=== PATIENT | male | born 1995 | race Caucasian/White ===

== ENCOUNTER 2018-04-19 23:48 | Emergency (ER) | payer BC ==
--- NOTE | 2018-04-20 00:54 | ED ---
GI/ HPI - HPI Summary HPI Summary: This pt is a 23 y/o male [facility] c/o right groin pain since 20:00 yesterday, 04/19/18. Pt reports he had sudden onset of pain above his right testicle last night. He describes the pain "like something pulled." Pt additionally notes he feels nauseous. Denies vomiting. Denies any fever, chills , dysuria, hematuria. Pt denies difficulty urinating. Denies any PMHx. - History of Current Complaint Chief Complaint: EDUrogenitalProblems Time Seen by Provider: 04/20/18 00:44 Stated Complaint: NAUSEA/DISCOMFORT/MILD PAIN IN GROIN PER PT Hx Obtained From: Patient Onset/Duration: Started Hours Ago, Still Present Timing: Lasting Hours Pain Intensity: 2 Location of Pain: Groin - right Pain Characteristics: Other: - "like something pulled" Associated Signs and Symptoms: Positive: Nausea. Negative: Vomiting, Fever, Hematuria, Dysuria, Chills Aggravating Factor(s): Nothing Alleviating Factor(s): Nothing - Allergy/Home Medications Allergies/Adverse Reactions: Allergies Allergy/AdvReac Type Severity Reaction Status Date / Time azithromycin [From Zithromax] Allergy Unknown Verified 04/19/18 23:57 Reaction Details PMH/Surg Hx/FS Hx/Imm Hx Endocrine/Hematology History: Denies: Hx Diabetes Cardiovascular History: Denies: Hx Hypertension Infectious Disease History: No Infectious Disease History: Denies: Traveled Outside the [place] in Last 30 Days - Family History Known Family History: Negative: Cardiac Disease, Hypertension, Diabetes - Social History Alcohol Use: None Substance Use Type: Reports: None Smoking Status (MU): Never Smoked Tobacco Review of Systems Negative: Fever, Chills Positive: Nausea. Negative: Vomiting Genitourinary: Other - POS: right groin pain Negative: dysuria, hematuria All Other Systems Reviewed And Are Negative: Yes Physical Exam - Summary Physical Exam Summary: VITAL SIGNS: Reviewed. GENERAL: Patient is a well-developed and nourished male who is lying comfortable in the stretcher. Patient is not in any acute respiratory distress. HEAD AND FACE: No signs of trauma. No ecchymosis, hematomas or skull depressions. No sinus tenderness. EYES: PERRLA, EOMI x 2, No injected conjunctiva, no nystagmus. EARS: Hearing grossly intact. Ear canals and tympanic membranes are within normal limits. MOUTH: Oropharynx within normal limits. NECK: Supple, trachea is midline, no adenopathy, no JVD, no carotid bruit, no c- spine tenderness, neck with full ROM. CHEST: Symmetric, no tenderness at palpation LUNGS: Clear to auscultation bilaterally. No wheezing or crackles. CVS: Regular rate and rhythm, S1 and S2 present, no murmurs or gallops appreciated. ABDOMEN: Soft, non-tender. No signs of distention. No rebound no guarding, and no masses palpated. Bowel sounds are normal. : Tenderness over the inguinal ligament medially. Testicular exam: Normal. No tenderness. No swelling. No elevation. No redness. EXTREMITIES: FROM in all major joints, no edema, no cyanosis or clubbing. NEURO: Alert and oriented x 3. No acute neurological deficits. Speech is normal and follows commands. SKIN: Dry and warm Triage Information Reviewed: Yes Vital Signs On Initial Exam: Initial Vitals Temp Pulse Resp BP Pulse Ox 98.7 F 120 20 176/103 99 04/19/18 23:50 04/19/18 23:50 04/19/18 23:50 04/19/18 23:50 04/19/18 23:50 Vital Signs Reviewed: Yes Diagnostics - Vital Signs Vital Signs Temp Pulse Resp BP Pulse Ox 04/19/18 23:50 98.7 F 120 20 176/103 99 - Laboratory Result Diagrams: 04/20/18 01:05 04/20/18 01:05 Lab Statement: Any lab studies that have been ordered have been reviewed, and results considered in the medical decision making process. - CT Abdomen/Pelvis CT CT Interpretation Completed By: Radiologist Summary of CT Findings: IMPRESSION: 1. 3 mm left lower lobe nodule. Fleischner guidelines do not apply to the patient's of this age. 2. Low aortic/SMA angle with narrowing of the left renal vein and proximal distention which is nonspecific but may be seen with nutcracker syndrome although no significant collateralization is noted. 3. Otherwise negative CT abdomen/pelvis. No distal ureteral calculi or obstructive uropathy. Dr. Covarrubias has reviewed this report. Re-Evaluation - Re-Evaluation First Eval Re-Evaluation Time: 05:06 Comment: Reviewed lab and CT results with the pt. He will be discharged home with follow up from PCP. GIGU Course/Dx - Course Assessment/Plan: Pt is a 23 y/o male who presents with right groin pain since 20 :00 yesterday, 04/19/18. Pt reports he had sudden onset of pain above his right testicle last night. He describes the pain "like something pulled." Pt additionally notes he feels nauseous. Denies vomiting. Denies any fever, chills , dysuria, hematuria. Pt denies difficulty urinating. Denies any PMHx. Labs show WBC of 12, glucose of 116, total bilirubin of 1.6. In the ED course the pt was given Toradol for the pain. Abdomen/pelvis CT shows 1. 3 mm left lower lobe nodule. Fleischner guidelines do not apply to the patient's of this age. 2. Low aortic/SMA angle with narrowing of the left renal vein and proximal distention which is nonspecific but may be seen with nutcracker syndrome although no significant collateralization is noted. 3. Otherwise negative CT abdomen/pelvis. No distal ureteral calculi or obstructive uropathy. Urinalysis was obtained. Pt will be discharged home with follow up from his PCP. He was given a prescription for Motrin. He was instructed to return to the ED for any new or worsening symptoms. - Diagnoses Provider Diagnoses: Muscle spasm Discharge - Sign-Out/Discharge Documenting (check all that apply): Patient Departure - Discharge home Patient Received Moderate/Deep Sedation with Procedure: No - Discharge Plan Condition: Stable Disposition: HOME Prescriptions: Ibuprofen TAB* [Motrin TAB* 800 MG] 800 mg PO Q6H PRN #30 tab PRN Reason: Pain Patient Education Materials: Muscle Spasm (ED) Referrals: [facility] @ [Outside] Additional Instructions: PLEASE FOLLOW UP WITH YOUR PRIMARY CARE PROVIDER IN 1-2 DAYS. RETURN TO THE EMERGENCY DEPARTMENT FOR CHANGING OR WORSENING SYMPTOMS. - Attestation Statements Document Initiated by Scribe: Yes Documenting Scribe: Day Molina Provider For Whom Scribe is Documenting (Include Credential): Jimenez Covarrubias MD Scribe Attestation: Day Carmichael, scribed for Jimenez Covarrubias MD on 04/20/18 at 0508. Status of Scribe Document: Ready
[2018-04-20] MEDS ORDERED: Ketorolac INJ* 30 MG/ML 1 ML VIAL IV PUSH ONE (00:56)
[2018-04-20 01:15] LABS: ABS Basophils 0 10^3/ul (0-0.2); ABS Eosinophils 0 10^3/ul (0-0.6); ABS Monocytes 0.6 10^3/ul (0-0.8); ABS Neutrophils 9.4 10^3/ul (1.5-7.7); ABS Nucleated RBC 0 10^3/ul; Eosinophil % 0.2 %; Hematocrit 50 % (42-52); Hemoglobin 16.8 g/dl (14.0-18.0); Lymphocyte % 16.6 %; Mean Corpuscular HGB Conc 34 g/dl (31-36); Mean Corpuscular Hemoglobin 30 pg (27-31); Mean Corpuscular Volume 90 fL (80-94); Mean Platelet Volume 7.7 fL (7.4-10.4); Nucleated Red Blood Cells % 0; Platelet Count 296 10^3/ul (150-450); Red Blood Count 5.57 10^6/ul (4.00-5.40); Red Cell Distribution Width 13 % (10.5-15)
[2018-04-20 01:36] LABS: ALT 22 U/L (7-52); AST 32 U/L (13-39); Albumin 5.1 g/dL (3.2-5.2); Alkaline Phosphatase 53 U/L (34-104); Anion Gap 12 mmol/L (2-11); BUN/Creatinine Ratio 18.1 (8-20); Blood Urea Nitrogen 15 mg/dL (6-24); C Reactive Protein < 1.00 mg/L (<8.01); CO2 Carbon Dioxide 25 mmol/L (22-32); Calcium 9.5 mg/dL (8.6-10.3); Chloride 100 mmol/L (101-111); EGFR African American 140.2 (>60); EGFR Non-African American 115.9 (>60); Globulin 2.6 g/dL (2-4); Glucose 116 mg/dL (70-100); Potassium 3.4 mmol/L (3.5-5.0); Sodium 137 mmol/L (135-145); Total Protein 7.7 g/dL (6.4-8.9)
[2018-04-20] MEDS ORDERED: Iohexol 300* (CONTRAST) 10 ML SDV IV ONE (01:44)
[2018-04-20 04:51] LABS: Urine Appearance Clear; Urine Bilirubin Negative (Negative); Urine Blood Negative (Negative); Urine Color Yellow; Urine Glucose Negative (Negative); Urine Ketones 1+ (Negative); Urine Nitrite Negative (Negative); Urine Protein Negative (Negative); Urine Urobilinogen Negative (Negative)
[2018-04-20 05:23] VITALS: BP 00/00
== END 2018-04-20 05:15 | disposition home or self-care (01) ==
LOC: ED 23:48
DX: M62.838 Other muscle spasm (principal); R10.31 Right lower quadrant pain; R11.0 Nausea; R91.1 Solitary pulmonary nodule; Z88.1 Allergy status to other antibiotic agents
CPT/HCPCS: 36415; 74177; 80053; 81003; 85025; 86140; 99282; J1885; Q9967